=== PATIENT | female | born 1980 | race Caucasian/White ===

== ENCOUNTER 2022-02-27 21:00 | Emergency (ER) | payer OTHER ==
[~2022-02-27] VITALS: Ht 152.4 cm; Wt 66.8 kg
[2022-02-27 21:10] VITALS: BP 164/110
[2022-02-27] MEDS ORDERED: LORazepam 2 mg/ml vial IM ONE (22:00)
[2022-02-27] MEDS ORDERED: LORA-269 PO (22:03)
[2022-02-27] MEDS ORDERED: LORazepam 2 mg/ml vial IV ONE (22:20)
== END 2022-02-27 22:40 | disposition home or self-care (01) ==
LOC: ER 21:10
DX: F41.0 Panic disorder [episodic paroxysmal anxiety] (principal); R20.2 Paresthesia of skin; R20.0 Anesthesia of skin; I10 Essential (primary) hypertension; Z88.0 Allergy status to penicillin; Z79.899 Other long term (current) drug therapy
CPT/HCPCS: 96374; 99283; J2060